=== PATIENT | male | born 1975 | race Caucasian/White ===

== ENCOUNTER 2020-05-16 01:11 | Inpatient (IN) | payer OTHER ==
[2020-05-16] MEDS ORDERED: Ketorolac 60 MG/2 ML SDV IM ONE (01:36)
--- NOTE | 2020-05-16 01:37 | EDM.PDOC ---
ED HPI GENERAL MEDICAL PROBLEM - General Chief Complaint: Flank Pain Stated Complaint: R SIDE PAIN Time Seen by Provider: 05/16/20 01:35 Source of Information: Reports: Patient, Family, RN Notes Reviewed History Limitations: Reports: No Limitations - History of Present Illness INITIAL COMMENTS - FREE TEXT/NARRATIVE: 45-year-old gentleman presents emergency department a complaint of right flank pain, he states it came on early this morning has progressively gotten worse does wax and wane feels similar to kidney stones he has had in the past he is not nauseated at this time last kidney stone was 2 years ago Right Flank Pain Score (Numeric/FACES): 10 - Related Data Allergies Allergy/AdvReac Type Severity Reaction Status Date / Time No Known Allergies Allergy Verified 05/16/20 01:20 Home Meds: Home Meds NK [No Known Home Meds] 05/16/20 [History] Past Medical History HEENT History: Reports: Impaired Vision Cardiovascular History: Reports: Hypertension Genitourinary History: Reports: Renal Calculus Musculoskeletal History: Reports: Other (See Below) Other Musculoskeletal History: "frozen right shoulder" - Infectious Disease History Infectious Disease History: Reports: Chicken Pox Social & Family History - Tobacco Use Smoking Status *Q: Never Smoker - Recreational Drug Use Recreational Drug Use: No ED ROS GENERAL - Review of Systems Review Of Systems: See Below Constitutional: Reports: No Symptoms Respiratory: Reports: No Symptoms Cardiovascular: Reports: No Symptoms GI/Abdominal: Denies: Nausea, Vomiting : Reports: Flank Pain ED EXAM, RENAL/ - Physical Exam Exam: See Below Exam Limited By: No Limitations General Appearance: Alert, WD/WN, No Apparent Distress Respiratory/Chest: No Respiratory Distress GI/Abdominal: Soft, Tender (Tender along the right flank) Back Exam: Normal Inspection, Full Range of Motion, CVA Tenderness (R). No: CVA Tenderness (L) Course - Vital Signs Last Recorded V/S: Last Vital Signs Temp 98.1 F 05/16/20 01:22 Pulse 79 05/16/20 01:22 Resp 17 05/16/20 01:22 BP 132/89 05/16/20 01:22 Pulse Ox 99 05/16/20 01:22 - Orders/Labs/Meds Orders: Active Orders 24 hr Category Date Time Status Peripheral IV Care [RC] . DIRECTED Care 05/16/20 03:14 Ordered Lactated Ringers [Ringers, Lactated] 1,000 ml Med 05/16/20 03:14 Ordered IV BOLUS Sodium Chloride 0.9% [Saline Flush] Med 05/16/20 03:14 Ordered 10 ml FLUSH ASDIRECTED PRN Peripheral IV Insertion Adult [OM.PC] Urgent Oth 05/16/20 03:14 Ordered Medication Orders Lactated Ringer's (Ringers, Lactated) 1,000 mls @ 125 mls/hr IV BOLUS ONE Stop: 05/16/20 11:13 Sodium Chloride (Saline Flush) 10 ml FLUSH ASDIRECTED PRN PRN Reason: Keep Vein Open Labs: Laboratory Tests 05/16/20 05/16/20 05/16/20 Range/Units 01:42 02:40 02:40 WBC 9.6 (4.5-11.0) K/uL RBC 4.77 (4.30-5.90) M/uL Hgb 14.5 (12.0-15.0) g/dL Hct 44.4 (40.0-54.0) % MCV 93 (80-98) fL MCH 30 (27-31) pg MCHC 33 (32-36) % Plt Count 206 (150-400) K/uL Neut % (Auto) 66 (36-66) % Lymph % (Auto) 24 (24-44) % [place] % (Auto) 9 H (2-6) % Eos % (Auto) 1 L (2-4) % Baso % (Auto) 0 (0-1) % Sodium 141 (140-148) mmol/L Potassium 4.3 (3.6-5.2) mmol/L Chloride 105 (100-108) mmol/L Carbon Dioxide 26 (21-32) mmol/L Anion Gap 9.7 (5.0-14.0) mmol/L BUN 10 (7-18) mg/dL Creatinine 0.9 (0.8-1.3) mg/dL Est Cr Clr Drug Dosing 118.37 mL/min Estimated GFR (MDRD) > 60 (>60) Glucose 100 (74-106) mg/dL Calcium 9.1 (8.5-10.1) mg/dL Total Bilirubin 0.5 (0.2-1.0) mg/dL AST 18 (15-37) U/L ALT 30 (12-78) U/L Alkaline Phosphatase 57 (46-116) U/L Total Protein 7.0 (6.4-8.2) g/dL Albumin 3.8 (3.4-5.0) g/dL Globulin 3.2 (2.3-3.5) g/dL Albumin/Globulin Ratio 1.2 (1.2-2.2) Lipase (73-393) U/L Urine Color Yellow (YELLOW) Urine Appearance Clear (CLEAR) Urine pH 6.5 (5.0-8.0) Ur Specific [place] 1.025 (1.008-1.030) Urine Protein Negative (NEGATIVE) mg/dL Urine Glucose (UA) Negative (NEGATIVE) mg/dL Urine Ketones Negative (NEGATIVE) mg/dL Urine Occult Blood Trace-intact H (NEGATIVE) Urine Nitrite Negative (NEGATIVE) Urine Bilirubin Negative (NEGATIVE) Urine Urobilinogen 0.2 (0.2-1.0) EU/dL Ur Leukocyte Esterase Negative (NEGATIVE) Urine RBC 0-5 (0-5) Urine WBC 0-5 (0-5) Ur Epithelial Cells Few Amorphous Sediment Not seen Urine Bacteria Rare Urine Mucus Not seen 05/16/20 Range/Units 02:40 WBC (4.5-11.0) K/uL RBC (4.30-5.90) M/uL Hgb (12.0-15.0) g/dL Hct (40.0-54.0) % MCV (80-98) fL MCH (27-31) pg MCHC (32-36) % Plt Count (150-400) K/uL Neut % (Auto) (36-66) % Lymph % (Auto) (24-44) % [place] % (Auto) (2-6) % Eos % (Auto) (2-4) % Baso % (Auto) (0-1) % Sodium (140-148) mmol/L Potassium (3.6-5.2) mmol/L Chloride (100-108) mmol/L Carbon Dioxide (21-32) mmol/L Anion Gap (5.0-14.0) mmol/L BUN (7-18) mg/dL Creatinine (0.8-1.3) mg/dL Est Cr Clr Drug Dosing mL/min Estimated GFR (MDRD) (>60) Glucose (74-106) mg/dL Calcium (8.5-10.1) mg/dL Total Bilirubin (0.2-1.0) mg/dL AST (15-37) U/L ALT (12-78) U/L Alkaline Phosphatase (46-116) U/L Total Protein (6.4-8.2) g/dL Albumin (3.4-5.0) g/dL Globulin (2.3-3.5) g/dL Albumin/Globulin Ratio (1.2-2.2) Lipase 101 (73-393) U/L Urine Color (YELLOW) Urine Appearance (CLEAR) Urine pH (5.0-8.0) Ur Specific [place] (1.008-1.030) Urine Protein (NEGATIVE) mg/dL Urine Glucose (UA) (NEGATIVE) mg/dL Urine Ketones (NEGATIVE) mg/dL Urine Occult Blood (NEGATIVE) Urine Nitrite (NEGATIVE) Urine Bilirubin (NEGATIVE) Urine Urobilinogen (0.2-1.0) EU/dL Ur Leukocyte Esterase (NEGATIVE) Urine RBC (0-5) Urine WBC (0-5) Ur Epithelial Cells Amorphous Sediment Urine Bacteria Urine Mucus Meds: Medications Generic Name Dose Route Start Last Admin Trade Name Freq PRN Reason Stop Dose Admin Lactated Ringer's 1,000 mls @ 125 mls/hr 05/16/20 03:14 Ringers, Lactated IV 05/16/20 11:13 BOLUS ONE Sodium Chloride 10 ml 05/16/20 03:14 Saline Flush FLUSH ASDIRECTED PRN Keep Vein Open Discontinued Medications Generic Name Dose Route Start Last Admin Trade Name Freq PRN Reason Stop Dose Admin Fentanyl 50 mcg 05/16/20 03:14 Sublimaze IVPUSH 05/16/20 03:15 ONETIME ONE Ketorolac Tromethamine 60 mg 05/16/20 01:36 05/16/20 01:44 Toradol IM 05/16/20 01:37 60 mg ONETIME ONE Administration Departure - Departure Time of Disposition: 03:18 Disposition: Admitted As Inpatient 67 Condition: Fair Clinical Impression: Common bile duct dilation - Discharge Information Referrals: Elinor Booker PA [Primary Care Provider] - Forms: ED Department Discharge Sepsis Event Note (ED) - Evaluation Sepsis Screening Result: No Definite Risk - Focused Exam Vital Signs: Vital Signs Temp Pulse Resp BP Pulse Ox 05/16/20 01:22 98.1 F 79 17 132/89 99 - My Orders Last 24 Hours: My Active Orders 05/16/20 03:14 Peripheral IV Care [RC] . DIRECTED Lactated Ringers [Ringers, Lactated] 1,000 ml IV BOLUS Sodium Chloride 0.9% [Saline Flush] 10 ml FLUSH ASDIRECTED PRN Peripheral IV Insertion Adult [OM.PC] Urgent - Assessment/Plan Last 24 Hours: My Active Orders 05/16/20 03:14 Peripheral IV Care [RC] . DIRECTED Lactated Ringers [Ringers, Lactated] 1,000 ml IV BOLUS Sodium Chloride 0.9% [Saline Flush] 10 ml FLUSH ASDIRECTED PRN Peripheral IV Insertion Adult [OM.PC] Urgent Plan: Assessment Acuity = acute Site and laterality = dilated common bile duct 13 mm Etiology = unknown Manifestations = abdominal pain Location of injury = Home Lab values = CBC, CMP, lipase all within normal limits urinalysis reveals trace amount of blood CT scan describes common bile duct above Plan Call discussed case hospitalist on-call at [facility] kindly agreed to come and evaluate the patient in the emergency department for admission plan is for pain control and MRCP in the morning This note was dictated using [employer]IO voice recognition software please call with any questions on syntax or grammar.
--- NOTE | 2020-05-16 02:20 | CRLCT ---
INDICATION: Right flank pain TECHNIQUE: CT Abdomen and pelvis without i.v. contrast. Coronal and sagittal reformats were obtained. COMPARISON: None FINDINGS: Lower chest: Unremarkable. Liver: Mild fatty infiltration of liver is noted. Spleen: Unremarkable. Pancreas: Unremarkable. Gallbladder: Unremarkable. The common bile duct is enlarged measuring 13 mm. Kidney: There is a nonobstructing 7 mm stone present in the lower pole of the left kidney. Right kidney is unremarkable in appearance. No ureteral calculi or obstruction seen. Adrenal: Unremarkable. Bowel: Unremarkable. The appendix is normal in appearance and size. Small fat containing umbilical hernia is noted. Vascular: Unremarkable. Lymph: Unremarkable. Peritoneum: Unremarkable. No pneumoperitoneum is seen. No significant ascites is noted. Pelvis: Unremarkable. Soft tissue: Unremarkable. Bone: Unremarkable for age. IMPRESSION: 1. The common bile duct is enlarged measuring 13 mm. Further assessment with MRCP or ERCP is recommended, especially if the patient has laboratory evidence suggestive of biliary obstruction. Dictated by Kenn Barajas MD @ 05/16/2020 2:19:05 AM Please note that all CT scans at this facility use dose modulation, iterative reconstruction, and/or weight-based dosing when appropriate to reduce radiation dose to as low as reasonably achievable. Dictated by: Kenn Barajas MD @ 05/16/2020 02:19:11 (Electronically Signed)
[2020-05-16] MEDS ORDERED: Sodium Chloride 0.9% 10 ML Syringe FLUSH PRN (03:14)
[2020-05-16] MEDS ORDERED: Lactated Ringers 1,000 ML IV ONE (03:14)
[2020-05-16] MEDS ORDERED: fentaNYL 100 MCG/2 ML SDV IVPUSH ONE (03:14)
--- NOTE | 2020-05-16 04:33 | PCM.HP.2 ---
H&P History of Present Illness - General Date of Service: 05/16/20 Admit Problem/Dx: Admission Diagnosis/Problem Admission Diagnosis/Problem Abdominal pain Source of Information: Patient, Family (), Provider, RN History Limitations: Reports: No Limitations - History of Present Illness Initial Comments - Free Text/Narative: chief complaint: right flank-abdominal pain 45-year-old gentleman presents emergency department a complaint of right flank pain, he states it came on early this morning has progressively gotten worse does wax and wane feels similar to kidney stones he has had in the past he is not nauseated at this time last kidney stone was 2 years ago Right Flank Onset of Symptoms: Reports: Sudden Duration of Symptoms: Reports: Hour(s): Location: Reports: Abdomen, Back (right flank) Quality: Reports: Same as Previous Episode (reports feels like a kidney stone) Severity: Severe Improves with: Reports: Immobilization Worsens with: Reports: None Associated Symptoms: Reports: Other (right flank pain) Right Flank Pain Score (Numeric/FACES): 10 - Related Data Allergies/Adverse Reactions: Allergies Allergy/AdvReac Type Severity Reaction Status Date / Time No Known Allergies Allergy Verified 05/16/20 01:20 Home Medications: Home Meds NK [No Known Home Meds] 05/16/20 [History] Past Medical History HEENT History: Reports: Impaired Vision Cardiovascular History: Reports: Hypertension Genitourinary History: Reports: Renal Calculus Musculoskeletal History: Reports: Other (See Below) Other Musculoskeletal History: "frozen right shoulder" - Infectious Disease History Infectious Disease History: Reports: Chicken Pox Social & Family History - Tobacco Use Smoking Status *Q: Never Smoker - Recreational Drug Use Recreational Drug Use: No - Living Situation & Occupation Living situation: Reports: Occupation: Employed (lives with in [place], [place]. 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.) H&P Review of Systems - Review of Systems: Review Of Systems: See Below General: Reports: Other (right flank-abdomen pain) HEENT: Reports: No Symptoms Pulmonary: Reports: No Symptoms Cardiovascular: Reports: No Symptoms Gastrointestinal: Reports: Abdominal Pain Genitourinary: Reports: Flank Pain (right, reports history of kidney stones) Musculoskeletal: Reports: Back Pain Skin: Reports: No Symptoms Psychiatric: Reports: No Symptoms Neurological: Reports: No Symptoms Hematologic/Lymphatic: Reports: No Symptoms Immunologic: Reports: No Symptoms Exam - Exam Exam: See Below - Vital Signs Vital Signs: Last Vital Signs Temp 36.7 C 05/16/20 01:22 Pulse 79 05/16/20 01:22 Resp 17 05/16/20 01:22 BP 132/89 05/16/20 01:22 Pulse Ox 99 05/16/20 01:22 Weight: 81.6 kg - Exam Quality Assessment: DVT Prophylaxis (SCD) General: Alert, Oriented, Cooperative, Sedated HEENT: PERRLA, Hearing Intact, Mucosa Moist & Nile, Nares Patent, Normal Nasal Septum, Posterior Pharynx Clear, Conjunctiva Clear, EOMI, EACs Clear, TMs Clear Neck: Supple, Trachea Midline, 2 Lungs: Clear to Auscultation, Normal Respiratory Effort Cardiovascular: Regular Rate, Regular Rhythm GI/Abdominal Exam: Normal Bowel Sounds, Soft, No Organomegaly, No Distention, No Abnormal Bruit, No Mass, Pelvis Stable, Tender (right mid to upper quadrant abdominal pain with movement) (Male) Exam: Deferred Rectal (Males) Exam: Deferred Back Exam: Normal Inspection, CVA Tenderness (R) Extremities: Normal Inspection, Normal Range of Motion, Non-Tender, No Pedal Edema, Normal Capillary Refill Peripheral Pulses: 2+: Radial (L), Radial (R), Dorsalis Pedis (L), Dorsalis Pedis (R) Skin: Warm, Dry, Intact Neurological: Cranial Nerves Intact, Reflexes Equal Bilateral Neuro Extensive - Mental Status: Alert, Oriented x3, Normal Mood/Affect, Normal Cognition Neuro Extensive - Motor, Sensory, Reflexes: CN II-XII Intact, Normal Gait, Normal Reflexes Psychiatric: Alert, Normal Affect, Normal Mood - Patient Data Lab Results Last 24 hrs: Laboratory Results - last 24 hr 05/16/20 05/16/20 05/16/20 Range/Units 01:42 02:40 02:40 WBC 9.6 (4.5-11.0) K/uL RBC 4.77 (4.30-5.90) M/uL Hgb 14.5 (12.0-15.0) g/dL Hct 44.4 (40.0-54.0) % MCV 93 (80-98) fL MCH 30 (27-31) pg MCHC 33 (32-36) % Plt Count 206 (150-400) K/uL Neut % (Auto) 66 (36-66) % Lymph % (Auto) 24 (24-44) % [place] % (Auto) 9 H (2-6) % Eos % (Auto) 1 L (2-4) % Baso % (Auto) 0 (0-1) % Sodium 141 (140-148) mmol/L Potassium 4.3 (3.6-5.2) mmol/L Chloride 105 (100-108) mmol/L Carbon Dioxide 26 (21-32) mmol/L Anion Gap 9.7 (5.0-14.0) mmol/L BUN 10 (7-18) mg/dL Creatinine 0.9 (0.8-1.3) mg/dL Est Cr Clr Drug Dosing 118.37 mL/min Estimated GFR (MDRD) > 60 (>60) Glucose 100 (74-106) mg/dL Calcium 9.1 (8.5-10.1) mg/dL Total Bilirubin 0.5 (0.2-1.0) mg/dL AST 18 (15-37) U/L ALT 30 (12-78) U/L Alkaline Phosphatase 57 (46-116) U/L Total Protein 7.0 (6.4-8.2) g/dL Albumin 3.8 (3.4-5.0) g/dL Globulin 3.2 (2.3-3.5) g/dL Albumin/Globulin Ratio 1.2 (1.2-2.2) Lipase (73-393) U/L Urine Color Yellow (YELLOW) Urine Appearance Clear (CLEAR) Urine pH 6.5 (5.0-8.0) Ur Specific [place] 1.025 (1.008-1.030) Urine Protein Negative (NEGATIVE) mg/dL Urine Glucose (UA) Negative (NEGATIVE) mg/dL Urine Ketones Negative (NEGATIVE) mg/dL Urine Occult Blood Trace-intact H (NEGATIVE) Urine Nitrite Negative (NEGATIVE) Urine Bilirubin Negative (NEGATIVE) Urine Urobilinogen 0.2 (0.2-1.0) EU/dL Ur Leukocyte Esterase Negative (NEGATIVE) Urine RBC 0-5 (0-5) Urine WBC 0-5 (0-5) Ur Epithelial Cells Few Amorphous Sediment Not seen Urine Bacteria Rare Urine Mucus Not seen 05/16/20 Range/Units 02:40 WBC (4.5-11.0) K/uL RBC (4.30-5.90) M/uL Hgb (12.0-15.0) g/dL Hct (40.0-54.0) % MCV (80-98) fL MCH (27-31) pg MCHC (32-36) % Plt Count (150-400) K/uL Neut % (Auto) (36-66) % Lymph % (Auto) (24-44) % [place] % (Auto) (2-6) % Eos % (Auto) (2-4) % Baso % (Auto) (0-1) % Sodium (140-148) mmol/L Potassium (3.6-5.2) mmol/L Chloride (100-108) mmol/L Carbon Dioxide (21-32) mmol/L Anion Gap (5.0-14.0) mmol/L BUN (7-18) mg/dL Creatinine (0.8-1.3) mg/dL Est Cr Clr Drug Dosing mL/min Estimated GFR (MDRD) (>60) Glucose (74-106) mg/dL Calcium (8.5-10.1) mg/dL Total Bilirubin (0.2-1.0) mg/dL AST (15-37) U/L ALT (12-78) U/L Alkaline Phosphatase (46-116) U/L Total Protein (6.4-8.2) g/dL Albumin (3.4-5.0) g/dL Globulin (2.3-3.5) g/dL Albumin/Globulin Ratio (1.2-2.2) Lipase 101 (73-393) U/L Urine Color (YELLOW) Urine Appearance (CLEAR) Urine pH (5.0-8.0) Ur Specific [place] (1.008-1.030) Urine Protein (NEGATIVE) mg/dL Urine Glucose (UA) (NEGATIVE) mg/dL Urine Ketones (NEGATIVE) mg/dL Urine Occult Blood (NEGATIVE) Urine Nitrite (NEGATIVE) Urine Bilirubin (NEGATIVE) Urine Urobilinogen (0.2-1.0) EU/dL Ur Leukocyte Esterase (NEGATIVE) Urine RBC (0-5) Urine WBC (0-5) Ur Epithelial Cells Amorphous Sediment Urine Bacteria Urine Mucus Result Diagrams: 05/16/20 02:40 05/16/20 02:40 Sepsis Event Note - Evaluation Sepsis Screening Result: No Definite Risk - Focused Exam Vital Signs: Vital Signs Temp Pulse Resp BP Pulse Ox 05/16/20 01:22 36.7 C 79 17 132/89 99 Date Exam was Performed: 05/16/20 Time Exam was Performed: 05:03 - Problem List (1) Common bile duct dilation SNOMED Code(s): 744644661 ICD Code: K83.8 - OTHER SPECIFIED DISEASES OF BILIARY TRACT Status: Acute Priority: High Current Visit: Yes Problem List Initiated/Reviewed/Updated: Yes Orders Last 24hrs: Active Orders 24 hr Category Date Time Status Patient Status Manage Transfer [TRANSFER] Routine ADT 05/16/20 04:18 Active Peripheral IV Care [RC] . DIRECTED Care 05/16/20 03:14 Active Lactated Ringers [Ringers, Lactated] 1,000 ml Med 05/16/20 03:14 Active IV BOLUS Sodium Chloride 0.9% [Saline Flush] Med 05/16/20 03:14 Active 10 ml FLUSH ASDIRECTED PRN Peripheral IV Insertion Adult [OM.PC] Urgent Oth 05/16/20 03:14 Ordered Resuscitation Status Routine Resus Stat 05/16/20 04:21 Ordered Medication Orders Lactated Ringer's (Ringers, Lactated) 1,000 mls @ 125 mls/hr IV BOLUS ONE Stop: 05/16/20 11:13 Last Admin: 05/16/20 03:42 Dose: 125 mls/hr Documented by: DUNG Sodium Chloride (Saline Flush) 10 ml FLUSH ASDIRECTED PRN PRN Reason: Keep Vein Open Last Admin: 05/16/20 03:43 Dose: 10 ml Documented by: DUNG Assessment/Plan Comment:: ASSESSMENT / PLAN: Abdominal pain 45-year-old gentleman presents emergency department a complaint of right flank pain, he states it came on early this morning has progressively gotten worse does wax and wane feels similar to kidney stones he has had in the past he is not nauseated at this time last kidney stone was 2 years ago Right Flank Common Bile Duct dilation -Admit to [address] [place] [address] for further monitoring -NPO -IV Fluids Normal Saline at 125 mL per hour -IV Dilaudid 1 mg every 2 hours for pain control rate at 7 to 9 -PO Hydrocodone 5-325mg 2 tabs every 4 hours less acute pain -anti nausea medication ordered -Advise to notify nurses of any fever or worsen pain -pending MRCP -And a.m. labs: CBC, BMP Maintenance issues -Orders home meds - no chronic medications -Nutrition: NPO -Calzada catheter not indicated at this time -DVT: SCD -PPI; IV Protonix 40mg daily CODE STATUS: FULL Admission status: Admit to [address] [place] [address] This Patient is Admitted for Inpatient Services and is Medically Appropriate and Meets Medical Necessity for Inpatient Admission. I Reasonably Expect the Patient will Require Inpatient Services that Span a Period of Over 2 Midnights. My Rationale for Medically Necessary Inpatient Care will be Found in the Admission History & Physical and Progress Notes. I Reasonably Expect the [facility] ent to be Discharged or Transferred within 96 Hours After Admission to this [facility]. Disposition: home Primary care provider: Dr. Booker Hospitalist: Dr. Young - Mortality Measure Prognosis:: Good
[2020-05-16] MEDS ORDERED: Ondansetron 4 MG/2 ML SDV IV PRN (04:36)
[2020-05-16] MEDS ORDERED: Melatonin 3 MG Tab PO PRN (04:36)
[2020-05-16] MEDS ORDERED: Ondansetron 4 MG Tab.DIS PO PRN (04:36)
[2020-05-16] MEDS ORDERED: Acetaminophen 325 MG Tab PO PRN (04:36)
[2020-05-16] MEDS ORDERED: HYDROmorphone 1 MG/ML Syringe IVPUSH PRN (04:36)
[2020-05-16] MEDS ORDERED: Sodium Chloride 0.9% 1,000 ML IV SCH (04:36)
[2020-05-16] MEDS ORDERED: Bisacodyl 5 MG Tab PO PRN (04:36)
[2020-05-16] MEDS ORDERED: oxyCODONE 5 MG Tab PO PRN (04:36)
[2020-05-16] MEDS ORDERED: LORazepam 2 MG/ML SDV IV PRN (04:36)
[2020-05-16] MEDS ORDERED: Docusate Sodium 100 MG Cap PO PRN (04:36)
[2020-05-16] MEDS ORDERED: Pantoprazole 40 MG Vial IVPUSH SCH (09:00)
--- NOTE | 2020-05-16 10:30 | MR ---
Cholangiopancreatography CLINICAL HISTORY: Dilated common bile duct COMPARISON: CT abdomen 05/16/2020 TECHNIQUE: Multiple images of the biliary system were obtained. All images were obtained on a 1.5 Morena Siemens unit. FINDINGS: The liver has a normal configuration and signal. There is no focal mass or intrahepatic biliary dilatation. Common bile duct is dilated at 15 mm in diameter in its upper portion. This tapers as it passes through the pancreatic head. There is some heterogeneous signal within. This may be artifactual. Gallbladder is unremarkable. Pancreatic duct is a normal contour. Spleen is normal size and shape. IMPRESSION: Common hepatic and common bile duct dilatation with gradual tapering through the pancreatic head. There is heterogeneous signal within the common bile duct. This is most likely artifact. No intrahepatic or pancreatic ductal dilatation identified. The gallbladder appears normal
--- NOTE | 2020-05-16 13:16 | PCM.DCSUM1 ---
Discharge Summary - Hospital Course Brief History: Healthy 45-year-old male who presented with right upper quadrant abdominal pain and nausea. He was admitted for observation with a dilated common bile duct noted on the CT scan and symptom management with severe pain. Diagnosis: Stroke: No - Discharge Data Discharge Date: 05/16/20 Discharge Disposition: Home, Self-Care 01 Condition: Good - Referral to Home Health Primary Care Physician: JESÚS Franklin - Discharge Diagnosis/Problem(s) (1) RUQ abdominal pain SNOMED Code(s): 064945267 ICD Code: R10.11 - RIGHT UPPER QUADRANT PAIN Status: Acute Current Visit: Yes (2) Common bile duct dilation SNOMED Code(s): 573871511 ICD Code: K83.8 - OTHER SPECIFIED DISEASES OF BILIARY TRACT Status: Acute Priority: High Current Visit: Yes - Patient Summary/Data Hospital Course: Td presented to the emergency room with acute onset of right upper quadrant/right flank pain. Work-up in the emergency room was reassuring as far as laboratory studies are concerned. A CT scan of the abdomen and pelvis did show that his common bile duct was dilated at 15 mm but there were no other acute findings. No obvious stones or masses were noted. Patient had severe pain which was difficult to control in the emergency room so he was admitted to the hospital for observation and expedited work-up with MRCP planned in the morning. Overnight following admission there were no acute issues. His pain improved dramatically. He did not have any significant nausea or vomiting. The morning after admission we did complete an MRCP which also showed a dilated common bile duct but did not show any stones or sludge or significant abnormalities. Patient has not required any pain medication since he was in the emergency room. He did eat a regular lunch with no change in pain and he did not develop any nausea or vomiting. I suspect that he either passed a stone or possibly some sludge causing a temporary obstruction which is now relieved. With no other obvious abnormality noted I believe he is safe for outpatient management. If he has additional episodes we may need to consider additional testing or potentially cholecystectomy. Differential could include sphincter of Oddi dysfunction. This seems to be an isolated episode and since he is doing well he will be discharged home at this time. Follow-up will be necessary if he has recurrence of his symptoms. - Patient Instructions Diet: Regular Diet as Tolerated Activity: As Tolerated Driving: May Drive Today Showering/Bathing: May Shower Notify Provider of: Fever, Increased Pain, Nausea and/or Vomiting Other/Special Instructions: 1. You were in the hospital for observation after an episode of abdominal pain/back pain. We did find that your common bile duct was dilated on the CT scan images. We performed an MRCP which is an MRI test to look closely at the pancreas and biliary tree. We did not find any cause for the common bile duct to be dilated. Some potential causes could have included a gallstone versus sludge from the gallbladder versus mechanical obstruction at the level of the sphincter. You have been improving just with hydration and pain control. At this point there is no additional treatment needed. Follow-up will be necessary if you have additional episodes that are similar. If you have additional episodes we may need to consider removing your gallbladder. 2. Follow up with your primary care or in the emergency room if you have recurrent symptoms especially if they are severe. - Discharge Plan *PRESCRIPTION DRUG MONITORING PROGRAM REVIEWED*: Not Applicable *COPY OF PRESCRIPTION DRUG MONITORING REPORT IN PATIENT NHUNG: Not Applicable Home Medications: Home Meds NK [No Known Home Meds] 05/16/20 [History] Oxygen Therapy Mode: Room Air Patient Handouts: Biliary Colic, Adult Referrals: Elinor Booker PA [Primary Care Provider] - (f/u as needed ) - Discharge Summary/Plan Comment DC Time >30 min.: No - Patient Data Vitals - Most Recent: Last Vital Signs Temp 36.3 C 05/16/20 10:39 Pulse 63 05/16/20 10:39 Resp 18 05/16/20 10:39 BP 111/74 05/16/20 10:39 Pulse Ox 97 05/16/20 10:39 Weight - Most Recent: 81.193 kg I&O - Last 24 hours: Intake & Output 05/15/20 05/16/20 05/16/20 22:59 06:59 14:59 Intake Total 360 Balance 360 Lab Results - Last 24 hrs: Laboratory Results - last 24 hr 05/16/20 05/16/20 05/16/20 Range/Units 01:42 02:40 02:40 WBC 9.6 (4.5-11.0) K/uL RBC 4.77 (4.30-5.90) M/uL Hgb 14.5 (12.0-15.0) g/dL Hct 44.4 (40.0-54.0) % MCV 93 (80-98) fL MCH 30 (27-31) pg MCHC 33 (32-36) % Plt Count 206 (150-400) K/uL Neut % (Auto) 66 (36-66) % Lymph % (Auto) 24 (24-44) % [place] % (Auto) 9 H (2-6) % Eos % (Auto) 1 L (2-4) % Baso % (Auto) 0 (0-1) % Sodium 141 (140-148) mmol/L Potassium 4.3 (3.6-5.2) mmol/L Chloride 105 (100-108) mmol/L Carbon Dioxide 26 (21-32) mmol/L Anion Gap 9.7 (5.0-14.0) mmol/L BUN 10 (7-18) mg/dL Creatinine 0.9 (0.8-1.3) mg/dL Est Cr Clr Drug Dosing 118.37 mL/min Estimated GFR (MDRD) > 60 (>60) Glucose 100 (74-106) mg/dL Calcium 9.1 (8.5-10.1) mg/dL Total Bilirubin 0.5 (0.2-1.0) mg/dL AST 18 (15-37) U/L ALT 30 (12-78) U/L Alkaline Phosphatase 57 (46-116) U/L Total Protein 7.0 (6.4-8.2) g/dL Albumin 3.8 (3.4-5.0) g/dL Globulin 3.2 (2.3-3.5) g/dL Albumin/Globulin Ratio 1.2 (1.2-2.2) Lipase (73-393) U/L Urine Color Yellow (YELLOW) Urine Appearance Clear (CLEAR) Urine pH 6.5 (5.0-8.0) Ur Specific [place] 1.025 (1.008-1.030) Urine Protein Negative (NEGATIVE) mg/dL Urine Glucose (UA) Negative (NEGATIVE) mg/dL Urine Ketones Negative (NEGATIVE) mg/dL Urine Occult Blood Trace-intact H (NEGATIVE) Urine Nitrite Negative (NEGATIVE) Urine Bilirubin Negative (NEGATIVE) Urine Urobilinogen 0.2 (0.2-1.0) EU/dL Ur Leukocyte Esterase Negative (NEGATIVE) Urine RBC 0-5 (0-5) Urine WBC 0-5 (0-5) Ur Epithelial Cells Few Amorphous Sediment Not seen Urine Bacteria Rare Urine Mucus Not seen 05/16/20 Range/Units 02:40 WBC (4.5-11.0) K/uL RBC (4.30-5.90) M/uL Hgb (12.0-15.0) g/dL Hct (40.0-54.0) % MCV (80-98) fL MCH (27-31) pg MCHC (32-36) % Plt Count (150-400) K/uL Neut % (Auto) (36-66) % Lymph % (Auto) (24-44) % [place] % (Auto) (2-6) % Eos % (Auto) (2-4) % Baso % (Auto) (0-1) % Sodium (140-148) mmol/L Potassium (3.6-5.2) mmol/L Chloride (100-108) mmol/L Carbon Dioxide (21-32) mmol/L Anion Gap (5.0-14.0) mmol/L BUN (7-18) mg/dL Creatinine (0.8-1.3) mg/dL Est Cr Clr Drug Dosing mL/min Estimated GFR (MDRD) (>60) Glucose (74-106) mg/dL Calcium (8.5-10.1) mg/dL Total Bilirubin (0.2-1.0) mg/dL AST (15-37) U/L ALT (12-78) U/L Alkaline Phosphatase (46-116) U/L Total Protein (6.4-8.2) g/dL Albumin (3.4-5.0) g/dL Globulin (2.3-3.5) g/dL Albumin/Globulin Ratio (1.2-2.2) Lipase 101 (73-393) U/L Urine Color (YELLOW) Urine Appearance (CLEAR) Urine pH (5.0-8.0) Ur Specific [place] (1.008-1.030) Urine Protein (NEGATIVE) mg/dL Urine Glucose (UA) (NEGATIVE) mg/dL Urine Ketones (NEGATIVE) mg/dL Urine Occult Blood (NEGATIVE) Urine Nitrite (NEGATIVE) Urine Bilirubin (NEGATIVE) Urine Urobilinogen (0.2-1.0) EU/dL Ur Leukocyte Esterase (NEGATIVE) Urine RBC (0-5) Urine WBC (0-5) Ur Epithelial Cells Amorphous Sediment Urine Bacteria Urine Mucus Med Orders - Current: Current Medications Acetaminophen (Tylenol) 650 mg PO Q4H PRN PRN Reason: Pain (Mild 1-3)/fever Bisacodyl (Dulcolax) 5 mg PO DAILY PRN PRN Reason: Constipation Docusate Sodium (Colace) 100 mg PO BID PRN PRN Reason: Constipation Hydromorphone HCl (Dilaudid) 1 mg IVPUSH Q2H PRN PRN Reason: Pain (severe 7-10) Lorazepam (Ativan) 1 mg IV Q6H PRN PRN Reason: Nausea/Vomiting Melatonin (Melatonin) 6 mg PO BEDTIME PRN PRN Reason: Insomnia Ondansetron HCl (Zofran) 4 mg IV Q4H PRN PRN Reason: Nausea/Vomiting Ondansetron HCl (Zofran Odt) 4 mg PO Q6H PRN PRN Reason: Nausea able to take PO Oxycodone HCl (Oxycodone) 5 mg PO Q4H PRN PRN Reason: Pain (moderate 4-6) Last Admin: 05/16/20 11:25 Dose: 5 mg Documented by: Pantoprazole Sodium (Protonix Iv) 40 mg IVPUSH DAILY COUNT INCLUDES THE [facility] Last Admin: 05/16/20 09:45 Dose: 40 mg Documented by: Sodium Chloride (Saline Flush) 10 ml FLUSH ASDIRECTED PRN PRN Reason: Keep Vein Open Last Admin: 05/16/20 03:43 Dose: 10 ml Documented by: Discontinued Medications Fentanyl (Sublimaze) 50 mcg IVPUSH ONETIME ONE Stop: 05/16/20 03:15 Last Admin: 05/16/20 03:42 Dose: 50 mcg Documented by: Lactated Ringer's (Ringers, Lactated) 1,000 mls @ 125 mls/hr IV BOLUS ONE Stop: 05/16/20 11:13 Last Admin: 05/16/20 03:42 Dose: 125 mls/hr Documented by: Sodium Chloride (Normal Saline) 1,000 mls @ 125 mls/hr IV ASDIRECTED COUNT INCLUDES THE [facility] Ketorolac Tromethamine (Toradol) 60 mg IM ONETIME ONE Stop: 05/16/20 01:37 Last Admin: 05/16/20 01:44 Dose: 60 mg Documented by:
== END 2020-05-16 13:52 | disposition home or self-care (01) | DRG 446 ==
LOC: JP.ED 01:11 → JP.MS 04:18
PROVIDERS: ADMIT Hospitalist; ATTEND Internal Medicine
DX: K83.8 Other specified diseases of biliary tract (principal); H54.7 Unspecified visual loss; I10 Essential (primary) hypertension; Z87.442 Personal history of urinary calculi
CPT/HCPCS: 36415; 74176; 74181; 74181-26; 80053; 81001; 83690; 85025; 96372; 96374; 99285-25; A9270-GY; C9113; J1885; J3010; J7120

== ENCOUNTER 2020-05-22 19:11 | Emergency (ER) | payer OTHER ==
--- NOTE | 2020-05-22 20:09 | EDM.PDOC ---
ED HPI GENERAL MEDICAL PROBLEM - General Chief Complaint: Abdominal Pain Stated Complaint: R SIDE PAIN Time Seen by Provider: 05/22/20 20:03 Source of Information: Reports: Patient History Limitations: Reports: No Limitations - History of Present Illness INITIAL COMMENTS - FREE TEXT/NARRATIVE: Patient presents describing a return of severe right-sided flank and upper abdominal pain over the last 24 hours. He presented with these symptoms 1 week ago and was actually admitted to the hospital. Following radiology testing including an MRCP, there was common bile duct dilation but no obvious stones were seen. It was assumed that he passed stone prior to imaging. He eventually improved clinically and was sent home with instructions that if pain returned, so should he and he might need to have a cholecystectomy. He worked Saturday through Saturday and generally felt pretty good although the discomfort never completely went away, it sat smoldering in the background. He has had no unusual fatty foods or anything heavy today. The pain returned and is worse than 1 week ago. When he takes a deep breath it is more uncomfortable. It hurts to lie down and to a lesser extent with pressure over the right upper quadrant of the abdomen. He looks miserable. Onset: Today, Sudden, Gradual Location: Reports: Abdomen, Back Quality: Reports: Ache, Sharp, Stabbing Severity: Severe Improves with: Reports: None Worsens with: Reports: Breathing, Movement Associated Symptoms: Reports: No Other Symptoms right sided/ flank Pain Score (Numeric/FACES): 10 - Related Data Allergies Allergy/AdvReac Type Severity Reaction Status Date / Time No Known Allergies Allergy Verified 05/22/20 19:59 Home Meds: Home Meds NK [No Known Home Meds] 05/16/20 [History] Past Medical History HEENT History: Reports: Impaired Vision Cardiovascular History: Reports: Hypertension Genitourinary History: Reports: Renal Calculus Musculoskeletal History: Reports: Other (See Below) Other Musculoskeletal History: "frozen right shoulder" - Infectious Disease History Infectious Disease History: Reports: Chicken Pox - Past Surgical History HEENT Surgical History: Reports: None Cardiovascular Surgical History: Reports: None Social & Family History - Family History Family Medical History: Noncontributory - Tobacco Use Smoking Status *Q: Never Smoker - Caffeine Use Caffeine Use: Reports: Coffee, Soda - Recreational Drug Use Recreational Drug Use: No - Living Situation & Occupation Living situation: Reports: Occupation: Employed (lives with in [place], [place]. 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 Exam Limited By: Other (Physical discomfort.) General Appearance: Severe Distress Head: Atraumatic Neck: Normal Inspection Respiratory/Chest: No Respiratory Distress, Lungs Clear Cardiovascular: Regular Rate, Rhythm GI/Abdominal Exam: Soft, Tender (Mild right upper quadrant tenderness on palpation) Back Exam: CVA Tenderness (R) (Extreme tenderness to palpation in the upper right CVA and lower posterior thoracic rib region.) Extremities: Normal Inspection Psychiatric: Tearful (Irritated) Skin Exam: Warm Lymphatic: No Adenopathy Course - Vital Signs Last Recorded V/S: Last Vital Signs Temp 37.2 C 05/22/20 20:00 Pulse 86 05/22/20 20:00 Resp 16 05/22/20 20:00 BP 127/75 05/22/20 20:00 Pulse Ox 97 05/22/20 20:00 - Orders/Labs/Meds Orders: Active Orders 24 hr Category Date Time Status Iopamidol [Isovue-300 (61%)] Med 05/22/20 21:00 Active 100 ml IV . DIRECTED Sodium Chloride 0.9% [Normal Saline] 100 ml Med 05/22/20 21:00 Active IV ASDIRECTED Sodium Chloride 0.9% [Saline Flush] Med 05/22/20 20:11 Active 10 ml FLUSH ASDIRECTED PRN Saline Lock Insert [OM.PC] Routine Oth 05/22/20 20:11 Ordered Medication Orders Sodium Chloride (Normal Saline) 100 mls @ 3 mls/sec IV ASDIRECTED PERICO Last Admin: 05/22/20 21:27 Dose: 3 mls/sec Documented by: MARILU Iopamidol (Isovue-300 (61%)) 100 ml IV . DIRECTED PERICO Last Admin: 05/22/20 21:28 Dose: 100 ml Documented by: MARILU Sodium Chloride (Saline Flush) 10 ml FLUSH ASDIRECTED PRN PRN Reason: Keep Vein Open Last Admin: 05/22/20 20:23 Dose: 10 ml Documented by: WENCESLAO Labs: Laboratory Tests 05/22/20 05/22/20 Range/Units 20:18 20:18 WBC 9.7 (4.5-11.0) K/uL RBC 5.09 (4.30-5.90) M/uL Hgb 15.5 H (12.0-15.0) g/dL Hct 47.3 (40.0-54.0) % MCV 93 (80-98) fL MCH 31 (27-31) pg MCHC 33 (32-36) % Plt Count 243 (150-400) K/uL Neut % (Auto) 67 H (36-66) % Lymph % (Auto) 25 (24-44) % [place] % (Auto) 8 H (2-6) % Eos % (Auto) 1 L (2-4) % Baso % (Auto) 1 (0-1) % Sodium 142 (140-148) mmol/L Potassium 3.9 (3.6-5.2) mmol/L Chloride 103 (100-108) mmol/L Carbon Dioxide 28 (21-32) mmol/L Anion Gap 10.6 (5.0-14.0) mmol/L BUN 12 (7-18) mg/dL Creatinine 0.8 (0.8-1.3) mg/dL Est Cr Clr Drug Dosing 133.17 mL/min Estimated GFR (MDRD) > 60 (>60) Glucose 96 (74-106) mg/dL Calcium 9.5 (8.5-10.1) mg/dL Total Bilirubin 0.4 (0.2-1.0) mg/dL AST 16 (15-37) U/L ALT 26 (12-78) U/L Alkaline Phosphatase 71 (46-116) U/L C-Reactive Protein 0.21 (0.0-0.3) mg/dL Total Protein 8.1 (6.4-8.2) g/dL Albumin 4.2 (3.4-5.0) g/dL Globulin 3.9 H (2.3-3.5) g/dL Albumin/Globulin Ratio 1.1 L (1.2-2.2) Lipase 121 (73-393) U/L Meds: Medications Generic Name Dose Route Start Last Admin Trade Name Freq PRN Reason Stop Dose Admin Sodium Chloride 100 mls @ 3 mls/sec 05/22/20 21:00 05/22/20 21:27 Normal Saline IV 3 mls/sec ASDIRECTED PERICO Administration Iopamidol 100 ml 05/22/20 21:00 05/22/20 21:28 Isovue-300 (61%) IV 100 ml . DIRECTED PERICO Administration Sodium Chloride 10 ml 05/22/20 20:11 05/22/20 20:23 Saline Flush FLUSH 10 ml ASDIRECTED PRN Administration Keep Vein Open Discontinued Medications Generic Name Dose Route Start Last Admin Trade Name Remiq PRN Reason Stop Dose Admin Hydromorphone HCl 1 mg 05/22/20 20:11 05/22/20 20:24 Dilaudid IVPUSH 05/22/20 20:12 1 mg ONETIME ONE Administration Hydromorphone HCl 0.5 mg 05/22/20 20:50 05/22/20 21:01 Dilaudid IVPUSH 05/22/20 20:51 0.5 mg ONETIME ONE Administration Sodium Chloride 1,000 mls @ 999 mls/hr 05/22/20 20:52 05/22/20 21:02 Normal Saline IV 05/22/20 21:52 999 mls/hr .BOLUS ONE Administration Ketorolac Tromethamine 30 mg 05/22/20 20:11 05/22/20 20:23 Toradol IVPUSH 05/22/20 20:12 30 mg ONETIME ONE Administration Ondansetron HCl 4 mg 05/22/20 20:11 05/22/20 20:23 Zofran IVPUSH 05/22/20 20:12 4 mg ONETIME ONE Administration Sodium Chloride 10 ml 05/22/20 20:58 05/22/20 21:28 Saline Flush FLUSH 05/22/20 20:59 10 ml ONETIME ONE Administration - Re-Assessments/Exams Free Text/Narrative Re-Assessment/Exam: 05/22/20 20:18 Patient will be given Toradol 30 mg and hydromorphone 1 mg along with Zofran 4 mg, all as IV doses. We will have to reassess his metabolic status and likely require admission again and possible cholecystectomy. 05/22/20 20:51 Patient's pain is improved about 25%. He still has exquisite pain with palpation in the right CVA and lower posterior rib region. There is some pain with anterior abdominal palpation. I will give him another 0.5 mg of hydromorphone along with a liter of normal saline wide open. I will also redo a CT scan of the abdomen and pelvis. 05/22/20 22:52 I returned and the patient's pain is now 2/10 and he looks quite a bit better. I reviewed his case with Dr. Fink, the surgeon technical education teacher. He states that what the patient needs next is an ERCP since nothing has been shown on the imaging studies involved. Since that is not available here or in the near referral area the patient wishes to be transferred to [facility] in [place]. I reviewed his case with Dr. James, the coordinating hospitalist at [facility]. He accepts him in transfer. At this point, the patient feels better enough that he would prefer to go by private vehicle. Departure - Departure Time of Disposition: 22:55 Disposition: DC/Tfer to Acute Hospital 02 Condition: Good Clinical Impression: Common bile duct dilation Abdominal pain Qualifiers: Abdominal location: right upper quadrant Qualified Code(s): R10.11 - Right upper quadrant pain Back pain Qualifiers: Back pain location: thoracic back pain Chronicity: acute Back pain laterality: right Qualified Code(s): M54.6 - Pain in thoracic spine - Discharge Information Referrals: Elinor Booker PA [Primary Care Provider] - Forms: ED Department Discharge Sepsis Event Note (ED) - Evaluation Sepsis Screening Result: No Definite Risk - Focused Exam Vital Signs: Vital Signs Temp Pulse Resp BP Pulse Ox 05/22/20 20:00 37.2 C 86 16 127/75 97 05/22/20 19:57 37.2 C 86 16 127/75 97 - My Orders Last 24 Hours: My Active Orders 05/22/20 20:11 Sodium Chloride 0.9% [Saline Flush] 10 ml FLUSH ASDIRECTED PRN Saline Lock Insert [OM.PC] Routine 05/22/20 21:00 Iopamidol [Isovue-300 (61%)] 100 ml IV . DIRECTED Sodium Chloride 0.9% [Normal Saline] 100 ml IV ASDIRECTED - Assessment/Plan Last 24 Hours: My Active Orders 05/22/20 20:11 Sodium Chloride 0.9% [Saline Flush] 10 ml FLUSH ASDIRECTED PRN Saline Lock Insert [OM.PC] Routine 05/22/20 21:00 Iopamidol [Isovue-300 (61%)] 100 ml IV . DIRECTED Sodium Chloride 0.9% [Normal Saline] 100 ml IV ASDIRECTED
[2020-05-22] MEDS ORDERED: Sodium Chloride 0.9% 10 ML Syringe FLUSH PRN (20:11)
[2020-05-22] MEDS ORDERED: Ondansetron 4 MG/2 ML SDV IVPUSH ONE (20:11)
[2020-05-22] MEDS ORDERED: Ketorolac 30 MG/ML SDV IVPUSH ONE (20:11)
[2020-05-22] MEDS ORDERED: HYDROmorphone 1 MG/ML Syringe IVPUSH ONE (20:11)
[2020-05-22] MEDS ORDERED: HYDROmorphone 0.5 MG/0.5 ML Syringe IVPUSH ONE (20:50)
[2020-05-22] MEDS ORDERED: Sodium Chloride 0.9% 1,000 ML IV ONE (20:52)
[2020-05-22] MEDS ORDERED: Sodium Chloride 0.9% 10 ML Syringe FLUSH ONE (20:58)
[2020-05-22] MEDS ORDERED: Iopamidol 612 MG/ML 100 ML Bottle IV SCH (21:00)
[2020-05-22] MEDS ORDERED: Sodium Chloride 0.9% 100 ML IV SCH (21:00)
--- NOTE | 2020-05-22 21:44 | CRLCT ---
INDICATION: Right upper quadrant abdominal pain; CVA tenderness; enlarged common bile duct. COMPARISON: CT abdomen and pelvis without intravenous contrast May 16, 2020; MRCP May 16, 2020. TECHNIQUE: CT abdomen and pelvis with intravenous contrast; coronal and sagittal reformats. FINDINGS: No abnormal intra pulmonary nodular densities through the lung bases. No evidence of pleural effusion. Normal size cardiac silhouette without any evidence of pericardial effusion. No focal hepatic or splenic pathology. No pancreatic pathology. Diffuse dilatation of the extrahepatic common bile duct without any evidence of choledocholithiasis. This may represent type 1 choledochal cyst. Gallbladder is unremarkable. No adrenal pathology. 6 mm nonobstructing calculus lower pole calyx left kidney. No obstructive uropathy or perinephric pathology on either side. No kidney stones on the right side. No ureteral calculi. No retroperitoneal lymphadenopathy. No evidence of abdominal or pelvic ascites. Normal appendix. CT study of the pelvis is unremarkable . Mild nonobstructive dilatation of the terminal ileum; relatively new when compared to the previous study; clinical significance is unclear . Impression : 1. No kidney stones or obstructive uropathy on the right. 2. Nonobstructing renal calculi lower pole calices left kidney. 3. Normal appendix. 4. Diffuse dilatation of the extrahepatic common bile duct; rule out type 1 choledochal cyst. Please note that all CT scans at this facility use dose modulation, iterative reconstruction, and/or weight-based dosing when appropriate to reduce radiation dose to as low as reasonably achievable. Dictated by Stephen Rose MD @ May 22 2020 9:33PM Signed by Dr. Stephen Rose @ May 22 2020 9:43PM
== END 2020-05-22 23:52 ==
LOC: JP.ED 19:11
DX: K83.8 Other specified diseases of biliary tract (principal); M54.6 Pain in thoracic spine; I10 Essential (primary) hypertension
CPT/HCPCS: 36415; 74177; 80053; 83690; 85025; 86140; 96374; 96375; 96376; 99285; J1170; J1885; J2405; J7030; J7050; Q9967

== ENCOUNTER 2020-05-31 01:06 | Emergency (ER) | payer OTHER ==
[2020-05-31] MEDS ORDERED: Sodium Chloride 0.9% 10 ML Syringe FLUSH PRN (01:19)
[2020-05-31] MEDS ORDERED: HYDROmorphone 1 MG/ML Syringe IVPUSH ONE (01:20)
--- NOTE | 2020-05-31 01:25 | EDM.PDOC ---
ED HPI GENERAL MEDICAL PROBLEM - General Chief Complaint: Abdominal Pain Stated Complaint: ABD PAIN Time Seen by Provider: 05/31/20 01:21 Source of Information: Reports: Patient, Old Records, RN History Limitations: Reports: No Limitations - History of Present Illness INITIAL COMMENTS - FREE TEXT/NARRATIVE: 45 yo male was referred to [facility] about a week ago for an ERCP after dealing with some RUQ abdominal pain. This test was negative there and he was told that if his pain continued/returned he might need to have surgery. He has had the pain now for about 16 hrs and comes to our ER about 0100h for further evaluation and treatment. Pain is intermittent. No nausea or fever. Today's pain is more in the R flank area. Says he has been told in the past that he has a st one in the R kidney. Pain not as bad now as the last time he came to the ER. Onset: Gradual Onset Date: 05/30/20 Duration: Hour(s): (~16) Location: Reports: Back (R flank) Quality: Reports: Ache Severity: Moderate Improves with: Reports: None Worsens with: Reports: None Context: Reports: Other (See HPI) Associated Symptoms: Reports: No Other Symptoms. Denies: Fever/Chills, Nausea/Vomiting Treatments AUDIO VISUAL MANAGER: Reports: Other (see below) (none) Right Lower Back Pain Score (Numeric/FACES): 8 - Related Data Allergies Allergy/AdvReac Type Severity Reaction Status Date / Time No Known Allergies Allergy Verified 05/31/20 01:14 Home Meds: Home Meds NK [No Known Home Meds] 05/16/20 [History] Past Medical History HEENT History: Reports: Impaired Vision Cardiovascular History: Reports: Hypertension Genitourinary History: Reports: Renal Calculus Musculoskeletal History: Reports: Other (See Below) Other Musculoskeletal History: "frozen right shoulder" - Infectious Disease History Infectious Disease History: Reports: Chicken Pox - Past Surgical History HEENT Surgical History: Reports: None Cardiovascular Surgical History: Reports: None Social & Family History - Family History Family Medical History: Noncontributory - Tobacco Use Smoking Status *Q: Never Smoker - Caffeine Use Caffeine Use: Reports: Coffee, Soda - Recreational Drug Use Recreational Drug Use: No - Living Situation & Occupation Living situation: Reports: Occupation: Employed (lives with in [place], [place]. 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.) ED ROS GENERAL - Review of Systems Review Of Systems: See Below Constitutional: Reports: No Symptoms HEENT: Reports: No Symptoms Respiratory: Reports: No Symptoms Cardiovascular: Reports: No Symptoms GI/Abdominal: Reports: No Symptoms : Reports: Flank Pain (R flank) Musculoskeletal: Reports: Back Pain (R flank/CVA area) Skin: Reports: No Symptoms ED EXAM, GI/ABD - Physical Exam Exam: See Below Exam Limited By: No Limitations General Appearance: Alert, WD/WN, No Apparent Distress Eyes: Bilateral: Normal Appearance Ears: Normal External Exam, Normal Canal, Hearing Grossly Normal, Normal TMs Nose: Normal Inspection, No Blood Throat/Mouth: Normal Inspection, Normal Lips, Normal Oropharynx, Normal Voice, No Airway Compromise Head: Atraumatic, Normocephalic Neck: Normal Inspection Respiratory/Chest: No Respiratory Distress, Lungs Clear, Normal Breath Sounds, No Accessory Muscle Use Cardiovascular: Regular Rate, Rhythm, No Edema GI/Abdominal Exam: Normal Bowel Sounds, Soft, Non-Tender, No Distention Back Exam: Normal Inspection, CVA Tenderness (R). No: CVA Tenderness (L), Vertebral Tenderness Extremities: Normal Inspection, Normal Range of Motion, Non-Tender, No Pedal Edema Neurological: Alert, Oriented, CN II-XII Intact, Normal Cognition, No Motor/Sensory Deficits Psychiatric: Normal Affect, Normal Mood Skin Exam: Warm, Dry, Intact, Normal Color, No Rash Course - Vital Signs Last Recorded V/S: Last Vital Signs Temp 36.9 C 05/31/20 01:26 Pulse 63 05/31/20 02:27 Resp 16 05/31/20 02:27 BP 116/70 05/31/20 02:27 Pulse Ox 98 05/31/20 02:27 - Orders/Labs/Meds Orders: Active Orders 24 hr Category Date Time Status Lactated Ringers [Ringers, Lactated] 1,000 ml Med 05/31/20 02:18 Active IV BOLUS Sodium Chloride 0.9% [Saline Flush] Med 05/31/20 01:19 Active 10 ml FLUSH ASDIRECTED PRN Saline Lock Insert [OM.PC] Routine Oth 05/31/20 01:19 Ordered Medication Orders Lactated Ringer's (Ringers, Lactated) 1,000 mls @ 999 mls/hr IV BOLUS ONE Stop: 05/31/20 03:18 Last Admin: 05/31/20 01:45 Dose: 999 mls/hr Documented by: YOEL Sodium Chloride (Saline Flush) 10 ml FLUSH ASDIRECTED PRN PRN Reason: Keep Vein Open Last Admin: 05/31/20 01:41 Dose: 10 ml Documented by: YOEL Labs: Laboratory Tests 05/31/20 05/31/20 05/31/20 Range/Units 01:35 01:35 02:18 WBC 8.4 (4.5-11.0) K/uL RBC 4.94 (4.30-5.90) M/uL Hgb 15.1 H (12.0-15.0) g/dL Hct 46.1 (40.0-54.0) % MCV 93 (80-98) fL MCH 31 (27-31) pg MCHC 33 (32-36) % Plt Count 251 (150-400) K/uL Sodium 141 (140-148) mmol/L Potassium 4.4 (3.6-5.2) mmol/L Chloride 104 (100-108) mmol/L Carbon Dioxide 28 (21-32) mmol/L Anion Gap 8.9 (5.0-14.0) mmol/L BUN 13 (7-18) mg/dL Creatinine 0.9 (0.8-1.3) mg/dL Est Cr Clr Drug Dosing 118.37 mL/min Estimated GFR (MDRD) > 60 (>60) Glucose 102 (74-106) mg/dL Calcium 9.0 (8.5-10.1) mg/dL Total Bilirubin 0.4 (0.2-1.0) mg/dL AST 18 (15-37) U/L ALT 31 (12-78) U/L Alkaline Phosphatase 64 (46-116) U/L C-Reactive Protein 0.15 (0.0-0.3) mg/dL Total Protein 7.6 (6.4-8.2) g/dL Albumin 3.9 (3.4-5.0) g/dL Globulin 3.7 H (2.3-3.5) g/dL Albumin/Globulin Ratio 1.1 L (1.2-2.2) Urine Color Yellow (YELLOW) Urine Appearance Clear (CLEAR) Urine pH 6.5 (5.0-8.0) Ur Specific [place] 1.020 (1.008-1.030) Urine Protein Trace H (NEGATIVE) mg/dL Urine Glucose (UA) Negative (NEGATIVE) mg/dL Urine Ketones Negative (NEGATIVE) mg/dL Urine Occult Blood Negative (NEGATIVE) Urine Nitrite Negative (NEGATIVE) Urine Bilirubin Negative (NEGATIVE) Urine Urobilinogen 0.2 (0.2-1.0) EU/dL Ur Leukocyte Esterase Negative (NEGATIVE) Urine RBC 0-5 (0-5) Urine WBC 0-5 (0-5) Ur Epithelial Cells Few Amorphous Sediment Not seen Urine Bacteria Rare Urine Mucus Not seen Meds: Medications Generic Name Dose Route Start Last Admin Trade Name Freq PRN Reason Stop Dose Admin Lactated Ringer's 1,000 mls @ 999 mls/hr 05/31/20 02:18 05/31/20 01:45 Ringers, Lactated IV 05/31/20 03:18 999 mls/hr BOLUS ONE Administration Sodium Chloride 10 ml 05/31/20 01:19 05/31/20 01:41 Saline Flush FLUSH 10 ml ASDIRECTED PRN Administration Keep Vein Open Discontinued Medications Generic Name Dose Route Start Last Admin Trade Name Freq PRN Reason Stop Dose Admin Hydromorphone HCl 1 mg 05/31/20 01:20 05/31/20 02:20 Dilaudid IVPUSH 05/31/20 01:21 Not Given ONETIME ONE Ketorolac Tromethamine 30 mg 05/31/20 01:31 05/31/20 01:41 Toradol IVPUSH 05/31/20 01:32 30 mg ONETIME ONE Administration - Radiology Interpretation Free Text/Narrative:: Rib X-rays on right-neg Departure - Departure Time of Disposition: 03:20 Disposition: Home, Self-Care 01 Condition: Fair Clinical Impression: Right flank pain - Discharge Information *PRESCRIPTION DRUG MONITORING PROGRAM REVIEWED*: No *COPY OF PRESCRIPTION DRUG MONITORING REPORT IN PATIENT NHUNG: No Instructions: Flank Pain, Adult, [id number] Referrals: PCP,None [Primary Care Provider] - Forms: ED Department Discharge Additional Instructions: Use [place] as needed for pain relief. F/U with Rose Marie Malave for further evaluation and treatment. Return as needed. Sepsis Event Note (ED) - Focused Exam Vital Signs: Vital Signs Temp Pulse Resp BP Pulse Ox 05/31/20 02:27 63 16 116/70 98 05/31/20 01:26 36.9 C 79 16 129/88 98 - My Orders Last 24 Hours: My Active Orders 05/31/20 01:19 Sodium Chloride 0.9% [Saline Flush] 10 ml FLUSH ASDIRECTED PRN Saline Lock Insert [OM.PC] Routine 05/31/20 02:18 Lactated Ringers [Ringers, Lactated] 1,000 ml IV BOLUS - Assessment/Plan Last 24 Hours: My Active Orders 05/31/20 01:19 Sodium Chloride 0.9% [Saline Flush] 10 ml FLUSH ASDIRECTED PRN Saline Lock Insert [OM.PC] Routine 05/31/20 02:18 Lactated Ringers [Ringers, Lactated] 1,000 ml IV BOLUS
[2020-05-31] MEDS ORDERED: Ketorolac 30 MG/ML SDV IVPUSH ONE (01:31)
[2020-05-31] MEDS ORDERED: Lactated Ringers 1,000 ML IV ONE (02:18)
--- NOTE | 2020-05-31 03:10 | CRLCR ---
INDICATION: Lower right back chest wall pain TECHNIQUE: Rib radiograph 2 views right COMPARISON: None FINDINGS: Bone: No definite acute rib fractures are identified in the visualized ribs. The remaining osseous structures are unremarkable for age. Lung: Both lungs are unremarkable in appearance. No sign of pleural effusion seen. No pneumothorax is identified. IMPRESSION: 1. No acute osseous injuries or abnormalities seen. Dictated by: Kenn Barajas MD @ 05/31/2020 03:07:38 (Electronically Signed)
== END 2020-05-31 03:26 | disposition home or self-care (01) ==
LOC: JP.ED 01:06
DX: R10.9 Unspecified abdominal pain (principal); M54.5 Low back pain; I10 Essential (primary) hypertension
CPT/HCPCS: 36415; 71100; 80053; 81001; 85027; 86140; 96374; 99284; J1885; J7120

== ENCOUNTER 2020-06-24 06:59 | Day surgery (SDC) | payer OTHER ==
[2020-06-24] MEDS ORDERED: fentaNYL 250 MCG/5 ML SDV ONE (07:47)
[2020-06-24] MEDS ORDERED: Ondansetron 4 MG/2 ML SDV ONE (08:10)
[2020-06-24] MEDS ORDERED: Succinylcholine 200 MG/10 ML MDV ONE (08:10)
[2020-06-24] MEDS ORDERED: Neostigmine Methylsulfate 1 MG/ML 5 ML Syringe ONE (08:10)
[2020-06-24] MEDS ORDERED: Propofol 200 MG/20 ML SDV ONE (08:10)
[2020-06-24] MEDS ORDERED: Rocuronium 50 MG/5 ML Vial ONE (08:10)
[2020-06-24] MEDS ORDERED: Dexamethasone 4 MG/ML SDV ONE (08:10)
[2020-06-24] MEDS ORDERED: Glycopyrrolate 0.2 MG/ML 5 ML MDV ONE (08:10)
[2020-06-24] MEDS: Sodium Chloride 0.9% 1,000 ML IV SCH ×2 (08:11→13:44)
[2020-06-24] MEDS ORDERED: metroNIDAZOLE/Normal Saline 500 MG in Premix Bag 1 BAG IV ONE (08:45)
[2020-06-24] MEDS ORDERED: ceFAZolin 2 GM in Premix Bag 1 BAG IV ONE (08:45)
[2020-06-24] MEDS ORDERED: Lidocaine 1% 2 ML ONE (08:51)
[2020-06-24] MEDS ORDERED: Bupivacaine 0.5% 50 ML MDV ONE (09:00)
[2020-06-24] MEDS ORDERED: Lidocaine 1% with EPINEPHrine 1:100,000 50 ML MDV ONE (09:00)
[2020-06-24] MEDS ORDERED: Benzocaine/Cetylpyridinium/Menthol Lozenge MUCMEM PRN (09:12)
[2020-06-24] MEDS ORDERED: Docusate Sodium 100 MG Cap PO PRN (09:12)
[2020-06-24] MEDS ORDERED: Acetaminophen/HYDROcodone 325-5 MG Tab PO PRN (09:12)
[2020-06-24] MEDS ORDERED: Zolpidem 5 MG Tab PO PRN (09:12)
[2020-06-24] MEDS ORDERED: hydrOXYzine HCL 100 MG/2 ML SDV IM PRN (09:12)
[2020-06-24] MEDS ORDERED: Ropivacaine 40 ML, dexAMETHasone 8 MG, EPINEPHrine 0.4 MG, Sodium Chloride 0.9% 37.6 ML NERVRT SCH ×4 (09:15)
[2020-06-24] MEDS ORDERED: fentaNYL 100 MCG/2 ML SDV ONE (09:34)
[2020-06-24] MEDS ORDERED: Ketorolac 60 MG/2 ML SDV ONE (09:56)
[2020-06-24] MEDS ORDERED: Meperidine PF 25 MG/ML Syringe IM ONE (10:33)
--- NOTE | 2020-06-24 10:56 | OR ---
DATE OF PROCEDURE: 06/24/2020 SURGEON: Gurvinder Fink MD PROCEDURE: Laparoscopic cholecystectomy. COMPLICATIONS: None. SUBWAY TRAIN OPERATOR: None. ANESTHESIA: General. RISKS: Risks, benefits, alternatives, and limitations including, but not limited to infection, bleeding, and perforation were explained to the patient. We also discussed cystic duct injuries, common bile duct leaks, open surgery, and other risks not listed here. PROCEDURE IN DETAIL: The patient was placed in supine position. A supraumbilical curvilinear incision was made. A Veress needle was used to enter the abdomen without abnormality, and a drop test was performed without abnormality. The abdomen was subsequently insufflated and an Optiview trocar was inserted with no evidence of enterotomy or injury noted. Additional 10 and two 5 mm ports were entered under direct visualization. The gallbladder was retracted cephalad. The infundibulum was retracted inferolaterally. Using blunt dissection, a "clear view" of the gallbladder was obtained. The patient did have a single duct entering the gallbladder, which was clipped and transected. He also had other tubular structure which was consistent with the artery. This was cut and blood was noted to be coming from this, consistent with an arterial aspect. There were 2 other small vessels. These were either small blood vessels or lymphatics. These were then clipped and transected. No bile was noted. No lumen was noted. The remaining 1/3 of the gallbladder was removed off the gallbladder bed without difficulty. The gallbladder was delivered through the superior port using a bag. The abdomen was irrigated. The liquid was removed. The wounds were closed with 3-0 Vicryl and 4-0 Vicryl in interrupted running fashion. Dermabond was applied. The patient tolerated the procedure well. Gurvinder Fink MD /[id number]
--- NOTE | 2020-06-24 10:56 | OR ---
DATE OF PROCEDURE: 06/24/2020 SURGEON: Gurvinder Fink MD PROCEDURE: Transversus abdominis plane block, bilaterally. COMPLICATIONS: None. COOLER TENDER: None. RISKS: Risks, benefits, alternatives, and limitations including, but not limited to infection, bleeding, and injury to abdominal structures were explained to the patient, who wished to proceed. PROCEDURE IN DETAIL: The patient was placed in supine position. Left transversus plane was identified using 13 megahertz ultrasound probe. This was injected with approximately 80% of the solution. The other side was then performed in a same manner, same fashion, same technique, in the same sequence, and the same equipment. The patient tolerated the procedure well. Gurvinder Fink MD /[id number]
== END 2020-06-24 19:18 | disposition home or self-care (01) ==
LOC: JP.SDS 06:59 → JP.MS 09:12 → JP.SDS 19:18
PROVIDERS: ATTEND Surgery
DX: K81.1 Chronic cholecystitis (principal)
CPT/HCPCS: 36415; 47562; 80053; 85027; A9270; J0171; J0330; J0690; J1100; J1885; J2001; J2175; J2405; J2704; J2710; J2795; J3010; J3410; J3490; J7030; J7050

== ENCOUNTER 2021-09-01 18:27 | Emergency (ER) | payer OTHER ==
--- NOTE | 2021-09-01 19:37 | EDM.PDOC ---
ED HPI GENERAL MEDICAL PROBLEM - General Chief Complaint: Flank Pain Stated Complaint: SEVER LT SIDE BACK PAIN Time Seen by Provider: 09/01/21 18:55 Source of Information: Reports: Patient, Family History Limitations: Reports: No Limitations - History of Present Illness INITIAL COMMENTS - FREE TEXT/NARRATIVE: 46-year-old male with ongoing recurring left-sided flank pain and hematuria for the past couple of weeks. He has been seen several times by primary providers, has a CT scan scheduled for next week. He goes several days without discomfort but then gets intense left flank pain on today with struggling with persistent pain. At times it radiates down into the groin and seems to cause some dysuria. Nausea but no vomiting, no fevers or chills. Duration: Week(s): (Symptoms have been waxing and waning for 2 weeks) Location: Reports: Other (Left flank and left lower abdomen) Associated Symptoms: Reports: Other (Some urinary urgency and dysuria which also is intermittent) - Related Data Allergies Allergy/AdvReac Type Severity Reaction Status Date / Time No Known Allergies Allergy Verified 09/01/21 18:40 Home Meds: Home Meds NK [No Known Home Meds] 09/01/21 [History] Past Medical History HEENT History: Reports: Impaired Vision Cardiovascular History: Reports: Hypertension Respiratory History: Reports: None Gastrointestinal History: Reports: Cholelithiasis Genitourinary History: Reports: Renal Calculus Musculoskeletal History: Reports: Other (See Below) Other Musculoskeletal History: "frozen right shoulder" Neurological History: Reports: None Psychiatric History: Reports: None Endocrine/Metabolic History: Reports: None Hematologic History: Reports: None Immunologic History: Reports: None Oncologic (Cancer) History: Reports: None Dermatologic History: Reports: None - Infectious Disease History Infectious Disease History: Reports: Chicken Pox - Past Surgical History HEENT Surgical History: Reports: None Cardiovascular Surgical History: Reports: None GI Surgical History: Reports: Cholecystectomy, EGD, ERCP Male Surgical History: Reports: None Endocrine Surgical History: Reports: None Musculoskeletal Surgical History: Reports: None Oncologic Surgical History: Reports: None Dermatological Surgical History: Reports: None Social & Family History - Family History Family Medical History: No Pertinent Family History HEENT: Reports: Impaired Vision Cardiac: Reports: None Respiratory: Reports: None GI: Reports: None : Reports: None Musculoskeletal: Reports: None Neurological: Reports: None Psychiatric: Reports: None Endocrine/Metabolic: Reports: None Hematologic: Reports: None Immunologic: Reports: None Dermatologic: Reports: None Oncologic: Reports: None - Tobacco Use Tobacco Use Status *Q: Never Tobacco User - Caffeine Use Caffeine Use: Reports: Coffee, Soda Caffeine Use Comment: 2 daily - Recreational Drug Use Recreational Drug Use: No - Living Situation & Occupation Living situation: Reports: Occupation: Employed (lives with in [place], [place]. 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.) ED ROS GENERAL - Review of Systems Review Of Systems: See Below Constitutional: Denies: Fever, Chills HEENT: Reports: No Symptoms Respiratory: Reports: No Symptoms Cardiovascular: Reports: No Symptoms GI/Abdominal: Reports: Abdominal Pain (Lower abdomen) : Reports: Dysuria, Hematuria, Urgency Musculoskeletal: Reports: Back Pain (Left flank) Skin: Reports: No Symptoms ED EXAM, GENERAL - Physical Exam Exam: See Below Exam Limited By: No Limitations General Appearance: Alert, Mild Distress (Patient looks fairly uncomfortable) Eye Exam: Bilateral Eye: Normal Inspection Head: Atraumatic Neck: Non-Tender Respiratory/Chest: No Respiratory Distress, Lungs Clear Cardiovascular: Regular Rate, Rhythm. No: Tachycardia GI/Abdominal: Normal Bowel Sounds, Soft, Non-Tender Back Exam: CVA Tenderness (L) Extremities: Normal Inspection Neurological: Alert, Oriented, No Motor/Sensory Deficits Psychiatric: Anxious Skin Exam: Warm, Dry Course - Vital Signs Last Recorded V/S: Last Vital Signs Temp 98.3 F 09/01/21 18:39 Pulse 97 09/01/21 18:39 Resp 16 09/01/21 18:39 BP 142/78 H 09/01/21 18:39 Pulse Ox 98 09/01/21 18:39 - Orders/Labs/Meds Labs: Laboratory Tests 09/01/21 09/01/21 09/01/21 Range/Units 19:09 19:21 19: WBC 10.3 (4.5-11.0) K/uL RBC 4.24 L (4.30-5.90) M/uL Hgb 13.3 (12.0-15.0) g/dL Hct 38.9 L (40.0-54.0) % MCV 92 (80-98) fL MCH 31 (27-31) pg MCHC 34 (32-36) % Plt Count 257 (150-400) K/uL Neut % (Auto) 66.9 H (36-66) % Lymph % (Auto) 22.7 L (24-44) % [place] % (Auto) 9.8 H (2-6) % Eos % (Auto) 0.4 L (2-4) % Baso % (Auto) 0.2 (0-1) % Sodium 140 (140-148) mmol/L Potassium 4.2 (3.6-5.2) mmol/L Chloride 102 (100-108) mmol/L Carbon Dioxide 29 (21-32) mmol/L Anion Gap 8.8 (5.0-14.0) mmol/L BUN 21 H (7-18) mg/dL Creatinine 1.3 (0.8-1.3) mg/dL Est Cr Clr Drug Dosing 80.57 mL/min Estimated GFR (MDRD) 60 (>60) Glucose 112 H (74-106) mg/dL Calcium 8.9 (8.5-10.1) mg/dL Urine Color Yellow (YELLOW) Urine Appearance Clear (CLEAR) Urine pH 7.0 (5.0-8.0) Ur Specific [place] 1.020 (1.008-1.030) Urine Protein Negative (NEGATIVE) mg/dL Urine Glucose (UA) Negative (NEGATIVE) mg/dL Urine Ketones Negative (NEGATIVE) mg/dL Urine Occult Blood Moderate H (NEGATIVE) Urine Nitrite Positive H (NEGATIVE) Urine Bilirubin Negative (NEGATIVE) Urine Urobilinogen 1.0 (0.2-1.0) EU/dL Ur Leukocyte Esterase Negative (NEGATIVE) Urine RBC 75-100 H (0-5) Urine WBC 0-5 (0-5) Ur Epithelial Cells Rare Amorphous Sediment Not seen Urine Bacteria Rare Urine Mucus Not seen Meds: Medications Discontinued Medications Generic Name Dose Route Start Last Admin Trade Name Freq PRN Reason Stop Dose Admin Ketorolac Tromethamine 30 mg 09/01/21 20:23 09/01/21 20:32 Ketorolac 30 Mg/Ml Sdv IM 09/01/21 20:24 30 mg ONETIME ONE Administration - Re-Assessments/Exams Free Text/Narrative Re-Assessment/Exam: 09/01/21 20:25 CBC, CMP and UA were obtained. CT the abdomen and pelvis without contrast was ordered and the results are below Impression: Left-sided hydronephrosis and hydroureter with a 6.0 millimeter calculus in the distal left ureter above the ureterovesicular junction. UA shows RBCs and nitrite positive but no white cells and rare bacteria. Creatinine is normal, white count is normal. Images were sent to [facility] in [place], care plan will be discussed with urology. 30 mg of IM Toradol was given. 09/01/21 20:44 After discussion with urology, he was agreeable this patient likely needs a surgical procedure. There are no beds available at [facility] right now, but he will call the the patient is soon as a bed is available and we will treat with ketorolac and hydrocodone until that time. If his pain is uncontrolled he should drive directly to [facility] in [place] to the emergency room. Departure - Departure Time of Disposition: 21:09 Disposition: Home, Self-Care 01 Clinical Impression: Left nephrolithiasis - Discharge Information Instructions: Kidney Stones, [id number] Referrals: Elinor Booker PA [Primary Care Provider] - Forms: ED Department Discharge Care Plan Goals: Take 1 pill of ketorolac every 6 hours, take hydrocodone for any breakthrough pain. Go to [facility] ER in [place] if pain is uncontrolled with the medications and you feel you need more urgent evaluation. They will call you as soon as a bed is available for your procedure. Sepsis Event Note (ED) - Evaluation Sepsis Screening Result: No Definite Risk - Focused Exam Vital Signs: Vital Signs Temp Pulse Resp BP Pulse Ox 09/01/21 18:39 98.3 F 97 16 142/78 H 98
--- NOTE | 2021-09-01 20:13 | CRLCT ---
For Patients: As a result of the Century Cures Act, medical imaging exams and procedure reports are released immediately into your electronic medical record. You may view this report before your referring provider. If you have questions, please contact your health care provider. Indication: Left-sided flank pain Technique: Volumetric multidetector CT images of the abdomen and pelvis were without the administration of intravenous contrast. Comparison: None available. Findings: The lung bases are clear. The liver is normal in attenuation without intrahepatic biliary ductal dilatation. There is prior cholecystectomy. There is no significant common biliary ductal dilatation or abrupt cut off. The spleen is normal in attenuation and size. The stomach and duodenum are grossly unremarkable. The pancreas is normal in attenuation without significant atrophy. The adrenal glands are unremarkable. There is left-sided hydronephrosis and hydroureter with demonstration of a 6.0 millimeter calculus above the ureterovesicular junction. There is moderate diffuse stool seen throughout the colon. The appendix is unremarkable. There is no significant mesenteric, retroperitoneal, or pelvic sidewall lymph nodes. The aorta is nonaneurysmal. There is no significant atherosclerotic disease appreciated. The solid pelvic viscera are grossly unremarkable. There is no free fluid or free air. There is a small fat containing umbilical hernia. The lumbar vertebral body heights are grossly maintained with minimal endplate Schmorl`s defects. There is no significant spondylolisthesis or displaced fracture. Impression: Left-sided hydronephrosis and hydroureter with a 6.0 millimeter calculus in the distal left ureter above the ureterovesicular junction. Please note that all CT scans at this facility use dose modulation, iterative reconstruction, and/or weight-based dosing when appropriate to reduce radiation dose to as low as reasonably achievable. Dictated by Asa Hernandez MD @ 09/01/2021 8:13:03 PM (Electronically Signed)
[2021-09-01] MEDS ORDERED: Ketorolac 30 MG/ML SDV IM ONE (20:23)
== END 2021-09-01 21:09 | disposition home or self-care (01) ==
LOC: JP.ED 18:27
DX: I10 Essential (primary) hypertension (principal); N13.2 Hydronephrosis with renal and ureteral calculous obstruction
CPT/HCPCS: 36415; 74176; 80048; 81001; 85025; 96372; 99284; J1885

== ENCOUNTER 2021-09-18 17:39 | Emergency (ER) | payer OTHER ==
[2021-09-18] MEDS ORDERED: Sodium Chloride 0.9% 10 ML Syringe FLUSH PRN (18:15)
[2021-09-18] MEDS ORDERED: Etomidate 2 MG/ML 10 ML SDV IVPUSH ONE ×2 (18:15→18:30)
[2021-09-18] MEDS ORDERED: Etomidate 2 MG/ML 10 ML SDV ONE (18:26)
--- NOTE | 2021-09-18 19:03 | EDM.PDOC ---
ED HPI GENERAL MEDICAL PROBLEM - General Chief Complaint: Genitourinary Problem Stated Complaint: STENT REMOVE Time Seen by Provider: 09/18/21 18:10 Source of Information: Reports: Patient, Family History Limitations: Reports: No Limitations - History of Present Illness INITIAL COMMENTS - FREE TEXT/NARRATIVE: Jose Raul is a 46-year-old male presenting to the ED for sedation so that we can remove his ureteral stent. The patient has a history significant for having a ureterolithiasis and was seen by urology in [place] where they placed a stent. They left a small monofilament line attached to 1 end extending from the penis so that the patient can self extract the ureteral stent today, however, on his first attempt to cause severe pain and he aborted the attempt. He talked to the urologist at [place] who said to come back and then he talk to his primary provider who recommended he come to the ER where we can sedate him and remove the stent. I expressed to the patient that we typically do not remove ureteral stents in the ER, however, we will attempt that under conscious sedation with etomidate. The patient denies any allergies. He is very anxious. - Related Data Allergies Allergy/AdvReac Type Severity Reaction Status Date / Time No Known Allergies Allergy Verified 09/01/21 18:40 Home Meds: Home Meds Ketorolac [Toradol] 10 mg PO Q6HR 09/18/21 [History] Tamsulosin [Flomax] 0.4 mg PO DAILY 09/18/21 [History] Past Medical History HEENT History: Reports: Impaired Vision Cardiovascular History: Reports: Hypertension Respiratory History: Reports: None Gastrointestinal History: Reports: Cholelithiasis Genitourinary History: Reports: Renal Calculus Musculoskeletal History: Reports: Other (See Below) Other Musculoskeletal History: "frozen right shoulder" Neurological History: Reports: None Psychiatric History: Reports: None Endocrine/Metabolic History: Reports: None Hematologic History: Reports: None Immunologic History: Reports: None Oncologic (Cancer) History: Reports: None Dermatologic History: Reports: None - Infectious Disease History Infectious Disease History: Reports: Chicken Pox - Past Surgical History HEENT Surgical History: Reports: None Cardiovascular Surgical History: Reports: None GI Surgical History: Reports: Cholecystectomy, EGD, ERCP Male Surgical History: Reports: None Endocrine Surgical History: Reports: None Musculoskeletal Surgical History: Reports: None Oncologic Surgical History: Reports: None Dermatological Surgical History: Reports: None Social & Family History - Family History Family Medical History: No Pertinent Family History HEENT: Reports: Impaired Vision Cardiac: Reports: None Respiratory: Reports: None GI: Reports: None : Reports: None Musculoskeletal: Reports: None Neurological: Reports: None Psychiatric: Reports: None Endocrine/Metabolic: Reports: None Hematologic: Reports: None Immunologic: Reports: None Dermatologic: Reports: None Oncologic: Reports: None - Tobacco Use Tobacco Use Status *Q: Never Tobacco User - Caffeine Use Caffeine Use: Reports: Coffee, Soda Caffeine Use Comment: 2 daily - Living Situation & Occupation Living situation: Reports: Occupation: Employed (lives with in [place], [place]. 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 works as [employer].) ED ROS GENERAL - Review of Systems Review Of Systems: See Below Constitutional: Reports: No Symptoms HEENT: Reports: No Symptoms Respiratory: Reports: No Symptoms Cardiovascular: Reports: No Symptoms GI/Abdominal: Reports: No Symptoms : Reports: Other (Monofilament string extending from the urethra of the penis.) Skin: Reports: No Symptoms Neurological: Reports: No Symptoms Psychiatric: Reports: Anxiety ED EXAM, RENAL/ - Physical Exam Exam: See Below Exam Limited By: No Limitations General Appearance: Alert, Anxious (Male) Exam: Normal Inspection, Circumcised, Other (There is a monofilament string extending from the urethra of the penis with the other and attention to the ureteral stent) ED PROCEDURAL SEDATION - Pre Procedure Indications: other (Ureteral stent removal) Preparations: procedure explained, consent signed, oxygen, continuous pulse oximeter, suction, continuous air sampling and monitoring, constant attendance - Physical Exam Airway: normal anatomy Cardiovascular: normal heart sounds Respiratory: normal breath sounds Neurological: alert, responsive, NAD Mallampati Classification: 1 (soft palate, anterior/posterior tonsillar pillars, uvula visible) - Procedure Sedation Procedural Sedation Start Date: 09/18/21 Procedural Sedation Start Time: 18:41 Sedation: etomidate - Intra Procedure Condition during procedure: moderately sedated Complications: none Reversal: none - Post Procedure Procedural Sedation End Date: 09/18/21 Procedural Sedation End Time: 18:47 Condition after procedure: alert, NAD, responds to verbal stimuli - Discharge Condition Patient returned to pre-procedure baseline: Yes Alert prior to discharge: Yes Ambulatory with assistance: Yes Vital signs normal: Yes Time spent with sedated patient: 20 min Course - Vital Signs Last Recorded V/S: Last Vital Signs Temp 36.8 C 09/18/21 17:55 Pulse 101 H 09/18/21 17:55 Resp 16 09/18/21 17:55 BP 127/86 09/18/21 17:55 Pulse Ox 99 09/18/21 17:55 - Orders/Labs/Meds Orders: Active Orders 24 hr Category Date Time Status Sodium Chloride 0.9% [Saline Flush] Med 09/18/21 18:15 Ordered 10 ml FLUSH ASDIRECTED PRN Saline Lock Insert [OM.PC] Routine Oth 09/18/21 18:15 Ordered Medication Orders Sodium Chloride (Sodium Chloride 0.9% 10 Ml Syringe) 10 ml FLUSH ASDIRECTED PRN PRN Reason: Keep Vein Open Meds: Medications Generic Name Dose Route Start Last Admin Trade Name Freq PRN Reason Stop Dose Admin Sodium Chloride 10 ml 09/18/21 18:15 Sodium Chloride 0.9% 10 Ml Syringe FLUSH ASDIRECTED PRN Keep Vein Open Discontinued Medications Generic Name Dose Route Start Last Admin Trade Name Freq PRN Reason Stop Dose Admin Etomidate 24 mg 09/18/21 18:15 Etomidate 2 Mg/Ml 10 Ml Sdv IVPUSH 09/18/21 18:16 ONETIME ONE Etomidate Confirm 09/18/21 18:26 Etomidate 2 Mg/Ml 10 Ml Sdv Administered 09/18/21 18:27 Dose 20 mg .ROUTE .STK-MED ONE Etomidate 20 mg 09/18/21 18:30 09/18/21 18:42 Etomidate 2 Mg/Ml 10 Ml Sdv IVPUSH 09/18/21 18:31 20 mg ONETIME ONE Administration - Re-Assessments/Exams Free Text/Narrative Re-Assessment/Exam: 09/18/21 19:06 Dr. Goel assisted in the sedation portion while I removed the ureteral stent using a sterile mosquito forcep and sterile gloves. Departure - Departure Time of Disposition: 19:04 Disposition: Home, Self-Care 01 Clinical Impression: Encounter for removal of ureteral stent - Discharge Information Referrals: Elinor Booker PA [Primary Care Provider] - Care Plan Goals: Stent has been successfully removed. You may experience some mild discomfort from the urethra over the next 12 hours. This should resolve fairly quickly. Drink plenty of fluids to keep your urine flowing. This will aid in preventing scarring in the ureter while it heals from the trauma of the stone. Follow-up with urology as needed. Have a Thuy Marinelli. Sepsis Event Note (ED) - Evaluation Sepsis Screening Result: No Definite Risk - Focused Exam Vital Signs: Vital Signs Temp Pulse Resp BP Pulse Ox 09/18/21 17:55 36.8 C 101 H 16 127/86 99 - Problem List & Annotations (1) Encounter for removal of ureteral stent SNOMED Code(s): 771248448 Code(s): Z46.6 - ENCOUNTER FOR FITTING AND ADJUSTMENT OF URINARY DEVICE Status: Acute Priority: Medium Current Visit: Yes - Problem List Review Problem List Initiated/Reviewed/Updated: Yes - My Orders Last 24 Hours: My Active Orders 09/18/21 18:15 Sodium Chloride 0.9% [Saline Flush] 10 ml FLUSH ASDIRECTED PRN Saline Lock Insert [OM.PC] Routine - Assessment/Plan Last 24 Hours: My Active Orders 09/18/21 18:15 Sodium Chloride 0.9% [Saline Flush] 10 ml FLUSH ASDIRECTED PRN Saline Lock Insert [OM.PC] Routine
== END 2021-09-18 19:22 | disposition home or self-care (01) ==
LOC: JP.ED 17:39
DX: Z46.6 Encounter for fitting and adjustment of urinary device (principal); I10 Essential (primary) hypertension; Z79.899 Other long term (current) drug therapy
CPT/HCPCS: 96374; 99283-25; J3490

== ENCOUNTER 2022-02-21 17:16 | Emergency (ER) | payer OTHER ==
[2022-02-21] MEDS ORDERED: Aspirin 81 MG Tab.Chew PO ONE (17:30)
[2022-02-21 18:08] LABS: TROPONIN I HIGH SENSITIVITY 5.6 pg/mL (<=60.3)
== END 2022-02-21 18:30 | disposition home or self-care (01) ==
LOC: JP.ED 17:16
DX: R07.89 Other chest pain (principal); I10 Essential (primary) hypertension; Z90.49 Acquired absence of other specified parts of digestive tract
CPT/HCPCS: 36415; 71045; 80048; 84484; 85025; 93005; 93010; 99282; 99285-25; A9270-GY